=== PATIENT | female | born 1955 | race Two or more races ===

== ENCOUNTER 2023-07-18 11:15 | Inpatient (IN) | payer OTHER ==
[~2023-07-18] VITALS: Ht 157.5 cm; Wt 49.0 kg
[2023-07-18] MEDS ORDERED: MEPERIDINE HCL/PF 50 MG/ML VIAL IM STA (12:23)
[2023-07-18] MEDS ORDERED: ONDANSETRON HCL 2 MG/ML VIAL IV ONE (12:30)
--- NOTE | 2023-07-18 12:31 | NUR ---
SE RECIBE PTE ALERTA Y ORIENTADA X3 PTE REFIERE DOLOR ABD HACE VARIAS HORAS. SE QUINTON VITALES Y BRICE LISSY DE FLEX.
[2023-07-18] MEDS ORDERED: 0.9 % SODIUM CHLORIDE 1,000 ML IV STA (12:38)
--- NOTE | 2023-07-18 13:06 | NUR ---
PTE EVALUADO POR DR. GUERRERO SE QUINTON MUESTRA BAJO MEDIDAS ASEPTICAS, PTE REFIERE ENTENDER.
[2023-07-18 13:58] LABS: HEMOGLOBIN 13.3 g/dL (12.0-15.00); MEAN CELL VOLUME 86.5 fL (80.00-100.00); MEAN CORPUSCULAR HEMOGLOBIN 28.8 pg (27.00-32.0); MEAN CORPUSCULAR HGB CONC 33.3 g/dl (32.0-36.0); PLATELET COUNT 376 K/uL (150-450); RED BLOOD COUNT 4.62 M/uL (4.00-6.00); RED CELL DISTRIBUTION WIDTH 14.4 % (11.5-14.5)
[2023-07-18 14:05] LABS: ALBUMIN 2.7 gm/dL (3.4-5.0); BILIRUBIN TOTAL 0.57 mg/dL (0.3-1.2); BILIRUBIN,CONJUGATED 0.14 mg/dL (0.0-0.2); BILIRUBIN,UNCONJUGATED 0.43 mg/dL (0.0-0.6); CREATININE SERUM 0.81 mg/dL (0.55-1.02); GFR 70.31; POTASSIUM 4.04 mEq/L (3.5-5.1); TOTAL PROTEIN 7.1 gm/dL (6.4-8.2)
[2023-07-18] MEDS ORDERED: CLINDAMYCIN PHOSPHATE 150 MG/ML (600mg) IV STA (14:26)
[2023-07-18] MEDS ORDERED: CIPROFLOXACIN IN 5 % DEXTROSE 400 MG/200 ML PIGGYBAG IV STA (14:29)
[2023-07-18] MEDS ORDERED: MEPERIDINE HCL/PF 50 MG/ML VIAL IM ONE (15:45)
[2023-07-18 15:53] LABS: INR 1.12; PARTIAL THROMBOPLASTIN TIME 28.2 SECONDS (22.0-34.0); PROTHROMBIN TIME 11.7 SECONDS (9.0-11.5)
[2023-07-18] MEDS ORDERED: METRONIDAZOLE/SODIUM CHLORIDE 100 ML IV SCH (17:28)
[2023-07-18] MEDS ORDERED: FAMOTIDINE/PF 20 MG in 0.9 % SODIUM CHLORIDE 100 ML IV SCH (17:29)
[2023-07-18] MEDS ORDERED: CIPROFLOXACIN IN 5 % DEXTROSE 200 ML IV SCH (17:29)
[2023-07-18] MEDS ORDERED: 0.9 % SODIUM CHLORIDE 1,000 ML IV SCH (17:30)
[2023-07-18] MEDS ORDERED: ENALAPRILAT DIHYDRATE 1.25 MG/ML VIAL IV ONE (21:00)
[2023-07-18] MEDS ORDERED: MORPHINE SULFATE 4 MG/ML VIAL IV PRN (23:30)
[2023-07-19] MEDS ORDERED: MEPERIDINE HCL/PF 50 MG/ML VIAL IM PRN (03:45)
[2023-07-19 08:20] LABS: URINE APPEARANCE Clear; URINE BILIRRUBIN Small (NEGATIVE); URINE BLOOD Trace; URINE COLOR Dark Yellow; URINE GLUCOSE Negative (NEGATIVE); URINE LEUKOCYTE Trace; URINE NITRATE Negative; URINE PROTEIN 30 (NEGATIVE)
[2023-07-19 08:21] LABS: URINE BACTERIA 36.5 uL (0.0-1933); URINE EPITHELIAL CELLS 14.6 uL (0.0-38.8); URINE RBC 16.6 uL (0.0-20.8)
[2023-07-21 05:32] LABS: HEMATOCRIT 31.9 % (36.0-45.00); HEMOGLOBIN 10.5 g/dL (12.0-15.00); MEAN CELL VOLUME 87.2 fL (80.00-100.00); MEAN CORPUSCULAR HEMOGLOBIN 28.7 pg (27.00-32.0); MEAN CORPUSCULAR HGB CONC 32.9 g/dl (32.0-36.0); PLATELET COUNT 328 K/uL (150-450); RED BLOOD COUNT 3.66 M/uL (4.00-6.00); RED CELL DISTRIBUTION WIDTH 14.4 % (11.5-14.5)
[2023-07-21 05:51] LABS: BILIRUBIN TOTAL 0.33 mg/dL (0.3-1.2); CALCIUM 9.2 mg/dL (8.5-10.1); CREATININE SERUM 0.57 mg/dL (0.55-1.02); GFR 105.48; GLOBULINA 3.1 G/DL (2.4-3.5); POTASSIUM 3.77 mEq/L (3.5-5.1); TOTAL PROTEIN 5.1 gm/dL (6.4-8.2)
[2023-07-22] MEDS ORDERED: DIATRIZOATE MEGLUMINE, SODIUM 30 ML BOTTLE PO ONE (09:45)
[2023-07-22 10:46] LABS: HEMATOCRIT 24.9 % (36.0-45.00); HEMOGLOBIN 8.2 g/dL (12.0-15.00); MEAN CELL VOLUME 85.8 fL (80.00-100.00); MEAN CORPUSCULAR HEMOGLOBIN 28.2 pg (27.00-32.0); MEAN CORPUSCULAR HGB CONC 33.1 g/dl (32.0-36.0); PLATELET COUNT 287 K/uL (150-450); RED CELL DISTRIBUTION WIDTH 14.9 % (11.5-14.5)
[2023-07-22] MEDS ORDERED: METHYLPREDNISOLONE SOD SUCC 40 MG VIAL IV ONE (12:00)
[2023-07-22] MEDS ORDERED: DIPHENHYDRAMINE HCL 50 MG/ML VIAL 1ML IV ONE (12:00)
[2023-07-22] MEDS ORDERED: METHYLPREDNISOLONE SOD SUCC 40 MG VIAL ONE (21:27)
[2023-07-23] MEDS ORDERED: ONDANSETRON HCL 4 MG in 0.9 % SODIUM CHLORIDE 50 ML IV PRN (15:15)
[2023-07-23] MEDS ORDERED: ACETAMINOPHEN 325 MG TABLET PO PRN (15:15)
[2023-07-23] MEDS ORDERED: AMINO ACIDS 4.25 %/DEXTROSE 5% 1,000 ML PERIFERAL SCH (17:00)
[2023-07-23] MEDS ORDERED: MIDAZOLAM HCL 2 MG/2 ML VIAL IV PUSH ONE (17:45)
[2023-07-23] MEDS ORDERED: fentaNYL CITRATE 50 MCG/ML AMPUL IV PUSH ONE ×2 (17:45→20:00)
[2023-07-24] MEDS ORDERED: AZTREONAM 2,000 MG VIAL IV SCH (09:00)
[2023-07-25] MEDS ORDERED: ACETAMINOPHEN 500 MG GEL..CAP PO PRN (11:00)
[2023-07-25] MEDS ORDERED: LACTOBACILLUS ACIDOPHILUS 1 CAP CAP PO SCH (11:00)
[2023-07-26 07:32] LABS: HEMATOCRIT 30.1 % (36.0-45.00); HEMOGLOBIN 10.1 g/dL (12.0-15.00); MEAN CELL VOLUME 86.4 fL (80.00-100.00); MEAN CORPUSCULAR HGB CONC 33.6 g/dl (32.0-36.0); PLATELET COUNT 362 K/uL (150-450); RED BLOOD COUNT 3.48 M/uL (4.00-6.00)
[2023-07-26 07:57] LABS: CALCIUM 8.2 mg/dL (8.5-10.1); CREATININE SERUM 0.37 mg/dL (0.55-1.02); GFR 173.67
[2023-07-26 08:36] LABS: POTASSIUM 2.95 mEq/L (3.5-5.1)
[2023-07-26] MEDS ORDERED: MAGNESIUM SULFATE IN WATER 50 ML IV ONE (09:47)
[2023-07-26] MEDS ORDERED: POTASSIUM CHLORIDE 20MEQ/100ML H2O PB IV SCH (13:00)
[2023-07-27] MEDS ORDERED: VANCOMYCIN HCL 5 MG/ML REDILUIDO IV SCH (09:00)
[2023-07-27] MEDS ORDERED: LINEZOLID IN DEXTROSE 5% 300 ML IV SCH (16:43)
[2023-07-27 17:55] LABS: BILIRUBIN TOTAL 0.36 mg/dL (0.3-1.2); CALCIUM 8.8 mg/dL (8.5-10.1); CREATININE SERUM 0.43 mg/dL (0.55-1.02); GFR 146.02; GLOBULINA 3.1 G/DL (2.4-3.5); POTASSIUM 3.42 mEq/L (3.5-5.1); TOTAL PROTEIN 5.1 gm/dL (6.4-8.2)
[2023-07-28 06:11] LABS: HEMATOCRIT 31.2 % (36.0-45.00); HEMOGLOBIN 10.4 g/dL (12.0-15.00); MEAN CORPUSCULAR HEMOGLOBIN 28.7 pg (27.00-32.0); MEAN CORPUSCULAR HGB CONC 33.4 g/dl (32.0-36.0); PLATELET COUNT 435 K/uL (150-450); RED BLOOD COUNT 3.63 M/uL (4.00-6.00); RED CELL DISTRIBUTION WIDTH 15.1 % (11.5-14.5)
[2023-07-28] MEDS ORDERED: LACTOBACILLUS ACIDOPHILUS 1 CAP CAP PO SCH (09:00)
[2023-07-29] MEDS ORDERED: BISMUTH SUBSALICYLATE 524 MG/30 ML BLIST.PACK PO PRN (12:45)
[2023-07-30] MEDS ORDERED: DIATRIZOATE MEGLUMINE, SODIUM 30 ML BOTTLE PO ONE (05:00)
[2023-07-30] MEDS ORDERED: DIATRIZOATE MEGLUMINE, SODIUM 30 ML BOTTLE PO STA (06:29)
[2023-07-30 08:15] LABS: HEMATOCRIT 30.6 % (36.0-45.00); MEAN CELL VOLUME 85.4 fL (80.00-100.00); MEAN CORPUSCULAR HEMOGLOBIN 27.9 pg (27.00-32.0); MEAN CORPUSCULAR HGB CONC 32.7 g/dl (32.0-36.0); PLATELET COUNT 547 K/uL (150-450); RED BLOOD COUNT 3.59 M/uL (4.00-6.00); RED CELL DISTRIBUTION WIDTH 15.2 % (11.5-14.5)
[2023-07-30 08:41] LABS: CALCIUM 8.6 mg/dL (8.5-10.1); CREATININE SERUM 0.49 mg/dL (0.55-1.02); GFR 125.59; POTASSIUM 3.51 mEq/L (3.5-5.1)
[2023-07-31] MEDS ORDERED: LOPERAMIDE HCL 2 MG CAPSULE PO ONE (09:30)
[2023-08-02] MEDS ORDERED: ACETAMINOPHEN 500 MG GEL..CAP PO ONE (12:15)
[2023-08-03] MEDS ORDERED: DIATRIZOATE MEGLUMINE, SODIUM 30 ML BOTTLE PO ONE (07:00)
[2023-08-03 07:02] LABS: HEMOGLOBIN 9.4 g/dL (12.0-15.00); MEAN CELL VOLUME 85.1 fL (80.00-100.00); MEAN CORPUSCULAR HEMOGLOBIN 28.7 pg (27.00-32.0); MEAN CORPUSCULAR HGB CONC 33.7 g/dl (32.0-36.0); PLATELET COUNT 511 K/uL (150-450); RED BLOOD COUNT 3.29 M/uL (4.00-6.00); RED CELL DISTRIBUTION WIDTH 15.6 % (11.5-14.5)
[2023-08-03 07:35] LABS: ALBUMIN 1.6 gm/dL (3.4-5.0); BILIRUBIN TOTAL 0.2 mg/dL (0.3-1.2); CALCIUM 8.3 mg/dL (8.5-10.1); CREATININE SERUM 0.48 mg/dL (0.55-1.02); GFR 128.61; GLOBULINA 2.8 G/DL (2.4-3.5); POTASSIUM 3.11 mEq/L (3.5-5.1); TOTAL PROTEIN 4.4 gm/dL (6.4-8.2)
[2023-08-04] MEDS ORDERED: LINEZOLID 600 MG TABLET PO SCH (09:00)
== END 2023-08-06 11:12 | disposition home or self-care (01) | DRG 391 ==
LOC: ER 11:15 → SURH 18:10 → SURG 18:10 → SURH 21:05
PROVIDERS: General Practice; Internal Medicine; ADMIT Internal Medicine; ATTEND Internal Medicine
PROC: BW21ZZZ Computerized Tomography (CT Scan) of Abdomen and Pelvis (ICD-10-PCS; 2023-07-18)
PROC: 4A12X4Z Monitoring of Cardiac Electrical Activity, External Approach (ICD-10-PCS; 2023-07-19)
PROC: BT04ZZZ Plain Radiography of Kidneys, Ureters and Bladder (ICD-10-PCS; 2023-07-19)
PROC: BT04ZZZ Plain Radiography of Kidneys, Ureters and Bladder (ICD-10-PCS; 2023-07-21)
PROC: BW21YZZ Computerized Tomography (CT Scan) of Abdomen and Pelvis using Other Contrast (ICD-10-PCS; 2023-07-22)
PROC: 0W9G30Z Drainage of Peritoneal Cavity with Drainage Device, Percutaneous Approach (ICD-10-PCS; principal; 2023-07-23)
PROC: 0D9P30Z Drainage of Rectum with Drainage Device, Percutaneous Approach (ICD-10-PCS; 2023-07-23)
PROC: BW21YZZ Computerized Tomography (CT Scan) of Abdomen and Pelvis using Other Contrast (ICD-10-PCS; 2023-07-30)
PROC: BW21YZZ Computerized Tomography (CT Scan) of Abdomen and Pelvis using Other Contrast (ICD-10-PCS; 2023-08-03)
DX: K57.20 Diverticulitis of large intestine with perforation and abscess without bleeding (principal); K68.19 Other retroperitoneal abscess; K90.49 Malabsorption due to intolerance, not elsewhere classified; Z20.822 Contact with and (suspected) exposure to COVID-19